=== PATIENT | female | born 1985 | race Caucasian/White ===

== ENCOUNTER 2019-03-21 20:43 | Day surgery (SDC) | payer OTHER ==
[2019-03-21 20:48] VITALS: BMI 27.3
--- NOTE | 2019-03-21 20:48 | PDOC ---
Rapid Medical Evaluation Time Seen by Provider: 03/21/19 20:47 Medical Evaluation: 03/21/19 20:47 CC: lower abdominal pain s/p miscarriage PE: deferred Orders: labs, urine, sono Patient will proceed to ED for further evaluation. Discharge Disposition - Diagnosis Lower abdominal pain - Referrals - Patient Instructions - Post Discharge Activity
--- NOTE | 2019-03-21 21:21 | PDOC ---
History of Present Illness - General Chief Complaint: Pain Stated Complaint: LOWER ABD PAIN Time Seen by Provider: 03/21/19 20:47 - History of Present Illness Initial Comments: 03/21/19 21:41 HPI: 33 y/o F recently delivered 6months ago presenting with acute onset lower abdominal pain that started 2 hrs ago. She states she was cleaning at home when she felt the pain come on. Pain is focally in suprapubic region with some radiation to RLQ. Pain feels like cramps and sharp in nature. Pain is 6/10. She took ibuprofen 400mg at 7pm but pain did not fully resolve. Pain is worse with motion. She has had similar pain 2 weeks ago during her period but pain was transient and only lasted 10 seconds; today it is constant. She denies fever, chills, chest pain, SOB, n/v, syncope, vaginal discharge, dysuria. Recent LMP ended 03/13/18. Using condoms for control PMHx: as noted above ROS: as noted SHx: Denies tobacco use; no alcohol use; no rec drugs Allergies: NKDA ROS: GENERAL/CONSTITUTIONAL: No fever or chills. No weakness. HEAD, EYES, EARS, NOSE AND THROAT: No change in vision. No ear pain or discharge. No sore throat. CARDIOVASCULAR: No chest pain or shortness of breath RESPIRATORY: No cough, wheezing, or hemoptysis. GASTROINTESTINAL: No nausea, vomiting, diarrhea or constipation. GENITOURINARY: No dysuria, frequency, or change in urination. MUSCULOSKELETAL: No joint or muscle swelling or pain. No neck or back pain. SKIN: No rash NEUROLOGIC: No headache, vertigo, loss of consciousness, or change in strength/ sensation. ENDOCRINE: No increased thirst. No abnormal weight change HEMATOLOGIC/LYMPHATIC: No anemia, easy bleeding, or history of blood clots. ALLERGIC/IMMUNOLOGIC: No hives or skin allergy. PE: GENERAL: Awake, alert, and fully oriented, no acute distress HEAD: No signs of trauma, normocephalic, atraumatic EYES: EOMI, sclera anicteric, conjunctiva clear ENT: Auricles normal inspection, hearing grossly normal, nares patent, oropharynx clear without exudates. Moist mucosa NECK: Normal ROM, no lymphadenopathy LUNGS: No increased work of breathing, symmetrical chest rise, clear to auscultation bilaterally, no wheezes, crackles or rhonchi HEART: Regular rate, regular rhythm, normal S1 and S2, no murmur, peripheral pulses 2+ and equal bilaterally. ABDOMEN: Soft, nondistended, suprapubic and right pelvic ttp with minimal guarding, normoactive bowel sounds. No masses. No CVAT MUSCULOSKELETAL: Normal inspection, FROM NEUROLOGICAL: Cranial nerves II through XII grossly intact. Normal speech, normal gait, no focal sensorimotor deficits SKIN: Warm, Dry, normal turgor, no rashes or lesions noted Past History - Past Medical History Allergies/Adverse Reactions: Allergies Allergy/AdvReac Type Severity Reaction Status Date / Time No Known Allergies Allergy Verified 03/21/19 20:48 COPD: No - Immunization History Immunization Up to Date: Yes - Psycho Social/Smoking Cessation Hx Smoking History: Never smoked Have you smoked in the past 12 months: No Information on smoking cessation initiated: No Hx Alcohol Use: No Drug/Substance Use Hx: No *Physical Exam - Vital Signs Last Vital Signs Temp Pulse Resp BP Pulse Ox 97.6 F 89 17 139/74 100 03/21/19 20:45 03/21/19 20:45 03/21/19 20:45 03/21/19 20:45 03/21/19 20:45 ED Treatment Course - LABORATORY CBC & Chemistry Diagram: 03/21/19 22:00 03/21/19 22:00 Medical Decision Making - Medical Decision Making 03/21/19 22:13 33 y/o F recently delivered 6months ago presenting with acute onset lower abdominal pain that started 2 hrs ago. VSS, AF. PE with suprapubic and right pelvic ttp. DDx include uti, preg, torsion, mettleschmerz -cbc, cmp, ua, serum beta hcg -tvus 03/21/19 23:10 bhcg 100 consistent with 03/21/19 23:35 TVUS with a 6.4x4.0x3.5cm nonspecific right adnexal solid structure noted that may represent a possible neoplastic lesion or ectopic . At least a moderate amount of nonspecific complex free fluid is seen suggestive of a hemoperitoneum. Patient follows with Dr Juan Garcia at [facility] and had an appt tomorrow; will contact physician/his integration project manager cover to discuss case and further recs 03/21/19 23:46 Discussed case with integration project manager Ob Dr Sorensen; patient currently with VSS and stable H+H; will plan to DC home with followup in Dr Damian costa at 9am; tylenol for pain control. discussed with patient and she understands all information and return pcxns; she is comfortable with plan; all questions answered 03/22/19 00:02 On further callback from Dr Sorensen, new information yielded that she was evaluated at the center for vaginal bleeding on 03/05/18 and found to have bHCG of 512; she was recommended for US and on 03/13/18 her US results showed an unremarkable US. These new findings are concerning for ruptured ectopic . He stated he does not cover the ER and to contact on-call ObGyn at [facility] On further discussion with Dr Rod, he states that ObGyn from [facility] has full priveleges here and will need to come to assess patient and take to the OR. RN kersey department supervisor notified and anesthesia team to be called Discharge - Discharge Information Problems reviewed: Yes Clinical Impression/Diagnosis: Lower abdominal pain, Vaginal bleeding, Ruptured right tubal ectopic causing hemoperitoneum Condition: Stable - Follow up/Referral Referrals: ON STAFF,NOT [Primary Care Provider] - - Patient Discharge Instructions Patient Printed Discharge Instructions: DI for Abdominal Pain -- Early , DI for Vaginal Bleeding During Additional Instructions: Additional Instructions: Please return to the emergency department with any new or worsening symptoms or concerns including worsening abdominal pain, fainting, significant vaginal bleeding. Please follow up with your shell freezing machine operator Dr Garcia's office tomorrow morning at 9:00am; you may tell the clinic that you were seen at [facility] ER and the physician you saw (Dr Huitron) spoke to the integration project manager shell freezing machine operator, Dr Sorensen , who recommended visiting the office first thing in the morning. - Post Discharge Activity
--- NOTE | 2019-03-21 22:14 | PDOC ---
Documentation entered by Jameel Lomax SCRIBE, acting as scribe for Margot Lagunas DO. Magrot Lagunas DO: This documentation has been prepared by the Dami callahan Daniel, SCRIBE, under my direction and personally reviewed by me in its entirety. I confirm that the documentation accurately reflects all work, treatment, procedures, and medical decision making performed by me. Attending Attestation - Resident Resident Name: Mayra Huitron - ED Attending Attestation I have performed the following: I have examined & evaluated the patient, The case was reviewed & discussed with the resident, I agree w/resident's findings & plan, Exceptions are as noted - HPI HPI: 03/21/19 21:50 The patient is a 33 year old (gave 6 months ago) female with no past medical history here today for evaluation of suprapubic pain. The patient reports that she had a sudden onset of sharp crampy suprapubic pain that radiates to the right lower quadrant and is a 6/10 in severity. She states that similar pains occur during her periods (LMP 2 weeks ago) but states that her current pain has lasted longer (2 hours) than her period pain. Patient denies headache, lightheadedness. Denies fever, chills. Denies chest pain, shortness of breath. Denies nausea, vomiting, diarrhea. Allergies: NKA - Physicial Exam PE: 03/21/19 21:55 Constitutional: Awake, alert, oriented. No acute distress. Head: Normocephalic. Atraumatic Eyes: PERRL. EOMI. Conjunctivae are not pale. ENT: Mucous membranes are moist and intact. Posterior pharynx without exudates or erythema. Uvula midline. Neck: Supple. Full ROM. No lymphadenopathy. Cardiovascular: Regular rate. Regular rhythm. S1, S2 regular. Distal pulses are 2+ and symmetric. Pulmonary/Chest: No evidence of respiratory distress. Clear to auscultation bilaterally No wheezing, rales or rhonchi. Abdominal: +right pelvic tenderness. Soft and non-distended. No rebound, guarding or rigidity. No organomegaly. No palpable masses. Good bowel sounds. Pelvic: +right adnexal tenderness. Back: No CVA tenderness. Musculoskeletal: No edema. No cyanosis. No clubbing. Full range of motion in all extremities. No calf tenderness. Radial/pedal pulses are intact and 2+ bilaterally Skin: Skin is warm and dry. No petechiae. No purpura. Neurological: Alert and oriented to person, place, and time. Cranial nerves II -XII are grossly intact. Normal speech. Strength is grossly symmetric. No sensory deficits. Psychiatric: Good eye contact. Normal interaction, affect and behavior. - Medical Decision Making 03/21/19 22:12 I, Dr. Margot Lagunas, DO, attest that this document has been prepared under my direction and personally reviewed by me in its entirety. I further attest, that it accurately reflects all work, treatment, procedures and medical decision -making performed by me. a/p: 33yo female with R pelvic pain intermittently x 2 weeks -intially started 2 weeks ago, resolved -had pain during her menstrual -has manager gyn appointment for tomorrow -pain acutely worsened tonight- took motrin without relief, but states she started to feel better upon arrival in ER -denies dysuria -denies vaginal symptoms -no n/v/d -will perform pelvic exam -will send labs -tvus -tylenol for pain 03/21/19 22:24 scant amount of vag bleeding on pelvic exam, pt with R adnexal ttp, os closed 03/21/19 22:24 ua shows blood cbc stable 03/21/19 22:52 pt beta 109 slight bleeding pending ultrasound 03/21/19 23:23 r adnexal cyst vs mass + preg ff in abd will discuss with SECURITY ATTENDANT 03/21/19 23:44 resident discussing the case with pts bed worker 03/21/19 23:59 on Mar 05 beta 500, tvus at that time was inconclusive and told to come back for repeat u/s tomorrow pt now with R adnexal mass, beta 100 poss ectopic per her JEWEL CORNER BRUSHING MACHINE OPERATOR - Dr. Sorensen covering Dr. Bailey recommends discussion with our oncall manager gyn service still recommends follow up tomorrow call placed to dr. oropeza 03/22/19 00:06 resident discussed the case with Dr. Oropeza 03/22/19 00:21 resident again discussed the case with Dr. Franchesca Bauman SECURITY ATTENDANT who will come to eval the patient and take the patient to the OR for ruptured ectopic 03/22/19 00:24 pt updated and agrees with the plan
[2019-03-21 22:17] LABS: BASO % 0.6 % (0-2.0); EOS % 1.8 % (0-4.5); HEMATOCRIT 34.5 % (32.4-45.2); HEMOGLOBIN 11.5 GM/dL (10.7-15.3); LYMPH % 25.9 % (8-40); MCH 29.9 pg (25.7-33.7); MCHC 33.3 g/dl (32.0-36.0); MEAN CELL VOLUME 89.9 fl (80-96); MEAN PLT VOLUME 8.6 fl (7.5-11.1); NEUT % 67.7 % (42.8-82.8); PLATELET COUNT 200 K/MM3 (134-434); RBC 3.83 M/mm3 (3.60-5.2); WHITE BLOOD COUNT 6.3 K/mm3 (4.0-10.0)
[2019-03-21 22:22] LABS: EPI CELLS 2.5 /HPF (0-5/HPF); HYALINE CASTS 1 /lpf (0-8); PH,URINE 7.5 (5.0-8.0); URINE APPEARANCE CLEAR; URINE BACTERIA 35.8 /hpf (NEGATIVE); URINE BILIRUBIN NEGATIVE (NEGATIVE); URINE COLOR YELLOW; URINE GLUCOSE (UA) NEGATIVE (NEGATIVE); URINE KETONE NEGATIVE (NEGATIVE); URINE LEUK ESTERASE NEGATIVE (NEGATIVE); URINE NITRITE NEGATIVE (NEGATIVE); URINE PROTEIN TRACE (NEGATIVE); URINE UROBILINOGEN 0.2 mg/dL (0.2-1.0); URINE WBC 6 /hpf (0-5)
[2019-03-21] MEDS ORDERED: ACETAMINOPHEN 500 MG TABLET (FP) PO ONE (22:22)
[2019-03-21 22:50] LABS: BILIRUBIN,TOTAL 0.3 mg/dL (0.2-1); BLOOD UREA NITROGEN 16.2 mg/dL (7-18); CALCIUM 8.8 mg/dL (8.5-10.1); CREATININE 0.6 mg/dL (0.55-1.3); POTASSIUM 4.2 mmol/L (3.5-5.1); TOT PROT 7.5 g/dl (6.4-8.2)
[2019-03-21] MEDS ORDERED: ACETAMINOPHEN 325 MG TABLET (FP) ONE (23:25)
[2019-03-22] MEDS ORDERED: SODIUM CHLORIDE 1,000 ML IV STA (00:20)
--- NOTE | 2019-03-22 01:33 | HP ---
Admitting History and Physical - Admission History Source: Patient Limitations to Obtaining History: No Limitations - Past Medical History ...LMP: 03/08/19 ...LMP Comment: 02/20/2019 ...: Yes (UNKNOWN) ...: 5 ...Para: 3 - Past Surgical History Past Surgical History: Yes: None (This is a 33 Y/O , LMP 02/20/2019, prsent to ED complaning of abdominal pain and vaginal bleeding that startedearlier and was not relifed, Pt. reports that she has been having similar pain on and off for the last few weeks, ( As per [facility] resident)was seen in [facility] on 03/05/2019 had a test that was positive ([facility]), had a pelvic US on 03/13/2019 which was unremarkable. US done in ED showed a 6.4x4x3.5 Rt. adenxal solid strcture, possible ectopic , moderet amount of complex free fluid suggestive of Hemopertoniem. On examnation Patient has mild difuse abdominal tenderness. Patient counseled and informed that the situation with +ve tesyt, blood in the pelvis and an adenxal mass is suggestive of likly and ectopic and would recomend operative intervention Operative Laprascopy/ open. All R/B/A explainend to patient in details, patient expressed and verbalized full understanding, al questions answerd, informed consent signed and wittnessed. Will take patient to the OR for diagnostic/ operative laprascopy, possible lapratomy, salpengictomy, oophorectomy and all nesscery procedures.) - Smoking History Smoking history: Never smoked Have you smoked in the past 12 months: No - Alcohol/Substance Use Hx Alcohol Use: No Home Medications - Allergies Allergies/Adverse Reactions: Allergies Allergy/AdvReac Type Severity Reaction Status Date / Time No Known Allergies Allergy Verified 03/21/19 20:48 Physical Examination Vital Signs: Vital Signs Temperature 98.0 F 03/22/19 00:43 Pulse Rate 86 03/22/19 00:43 Respiratory Rate 18 03/22/19 00:43 Blood Pressure 126/71 03/22/19 00:43 O2 Sat by Pulse Oximetry (%) 99 03/22/19 00:43 Labs: CBC, BMP 03/21/19 22:00 03/21/19 22:00
[2019-03-22] MEDS ORDERED: ONDANSETRON 4 MG/2 ML VIAL IVPUSH PRN (02:35)
[2019-03-22] MEDS ORDERED: PROPOFOL 20 ML ONE ×2 (02:39→02:58)
[2019-03-22] MEDS ORDERED: SUCCINYLCHOLINE CHLORIDE 200 MG/10 ML SYRINGE ONE (02:39)
[2019-03-22] MEDS ORDERED: MIDAZOLAM HCL 2 MG/2 ML SINGLE DOSE VIAL ONE (02:39)
[2019-03-22] MEDS ORDERED: LIDOCAINE HCL 1%, 10 MG/ML (20ML VIAL) ONE (02:43)
[2019-03-22] MEDS ORDERED: LACTATED RINGERS SOLUTION 1,000 ML IV SCH (02:45)
[2019-03-22] MEDS ORDERED: ceFAZolin SODIUM 1 GM VIAL IVPB ONE (03:06)
[2019-03-22] MEDS ORDERED: ceFAZolin SODIUM 1 GM VIAL ONE (03:06)
[2019-03-22] MEDS ORDERED: DEXAMETHASONE SOD PHOSPHATE 4 MG/1 ML VIAL ONE (03:09)
[2019-03-22] MEDS ORDERED: LIDOCAINE HCL 1%, 10 MG/ML (20ML VIAL) NR ONE (03:16)
[2019-03-22] MEDS ORDERED: HYDROmorphone HCl 2 MG/ML VIAL ONE (03:25)
[2019-03-22] MEDS ORDERED: KETOROLAC TROMETHAMINE 30 MG/1 ML VIAL ONE (03:49)
[2019-03-22] MEDS ORDERED: IBUPROFEN 800 MG/8 ML IJ IVPB PRN (04:25)
[2019-03-22] MEDS ORDERED: IBUPROFEN 600 MG TABLET (FP) PO PRN (04:25)
--- NOTE | 2019-03-22 04:41 | OP ---
Operative Note - Note: Operative Date: 03/22/19 Pre-Operative Diagnosis: Right Adenexal Mass. Ruptur right ectopic . Hemopertonium Operation: Diagnostic Laprascopy. Right Salpengectomy. evacuation of hemopertonium Findings: Right Adenexal Mass Ruptur right ectopic Hemopertonium Post-Operative Diagnosis: Same as Pre-op Surgeon: Myrtle Sorensen Anesthesiologist/GIMP BUTTONHOLE MACHINE OPERATOR: Veronika Baires Anesthesia: General Specimens Removed: Right rupute tubal ectopic . Hemopertonium Estimated Blood Loss (mls): 25 Drains & Tubes with Location: 150 CC clear urine Fluid Volume Replaced (mls): 1,000
[2019-03-22 16:49] VITALS: BP 114/67; PULSE 87; TEMP 98.4
--- NOTE | 2019-03-25 15:52 | PATH ---
Surgical Pathology Report Patient Name: DELVIS CHOI Med. Rec. #: [id number] /Age/Gender: 1985 (Age: 33) / F Account: <[id number]> Location: [facility] SUR[facility] Taken: 03/22/2019 Received: 03/22/2019 Reported: 03/25/2019 Physicians: Myrtle Sorensen MD Specimen(s) Received RIGHT FALLOPIAN TUBE Clinical History Hemoperitoneum due to rupture of right tubal ectopic Final Diagnosis FALLOPIAN TUBE, RIGHT, LAPAROSCOPIC SALPINGECTOMY: CHORIONIC VILLI IN A BACKGROUND OF HEMORRHAGE PRESENT WITHIN THE FALLOPIAN TUBE, CONSISTENT WITH ECTOPIC . Electronically Signed Yahaira Mcelroy M.D. Gross Description Received in formalin labeled "right fallopian tube," is a 6 cm in length dilated portion of fallopian tube. The outer surface is osborne purple and smooth. Sectioning reveals a dilated lumen containing blood clot. No definitive villous tissue or somatic tissue is identified. Environment Artist sections are submitted in 3 cassettes. /03/22/2019 saudi/03/22/2019
--- NOTE | 2019-03-28 15:44 | OP ---
DATE OF OPERATION: 03/22/2019 PREOPERATIVE DIAGNOSES: Acute abdominal pain. Vaginal bleeding. Ruptured right ectopic. POSTOPERATIVE DIAGNOSES: Acute abdominal pain. Vaginal bleeding. Ruptured right ectopic. Extensive hemoperitoneum. After consulting the patient and counseling the patient, all risks, benefits, and alternatives were explained to the patient. OPERATIVE PROCEDURE: Operative laparoscopy. Right salpingectomy. Evacuation of hemoperitoneum. After obtaining informed consent, where all risks, benefits and alternatives were discussed and explained to the patient in detail, where patient expressed and verbalized full understanding, all questions asked, consent was signed and witnessed. DESCRIPTION OF OPERATIVE PROCEDURE: Patient was taken to the operating room, was placed in the dorsal position. When anesthesia was found to be adequate, patient was put in lithotomy position. Venodyne boots were placed on the lower extremities. A Wilde catheter as placed. Patient was prepped and draped in the usual sterile fashion. A small subumbilical incision was done for a 5-mm trocar with 5-mm trocar inserted under direct vision with visualization of a large amount of blood in the peritoneum. A second trocar was placed on the right-hand side, a 5-mm trocar, in the anatomic site under direct vision also. A third port, a 10-12 port, was placed on the left side. Operative finding of extensive hemoperitoneum. The HUMI also was placed for mobilizing the uterus. On mobilizing the uterus, a right ruptured tubal ectopic was noted with extensive hemoperitoneum. Suction of hemoperitoneum was done. The ruptured ectopic tube was grasped with a non-traumatic grasper. Using the LigaSure, salpingectomy was done. Using the Endobag, the specimen was placed in and pulled out from the large trocar. Excellent hemostasis noted. Suction and evacuation of hemoperitoneum was done. Around 500 mL of blood in the pelvis was absorbed as much as we could. Looking at the left tube appeared to be within normal limits. Both ovaries appeared within normal limits. Uterus appeared within normal limits. Again, excellent hemostasis was viewed. The large 10-12 trocar was withdrawn under direct vision. Using the guided _Thomas maddieer____ device was used to close the fascia under direct vision. Two sutures were used to close the fascia. The Jose C-Didi device was withdrawn. The pneumoperitoneum was evacuated. The right 5-mm trocar withdrawn under direct vision and the camera and the 5-mm trocar in the umbilicus withdrawn under direct vision. The three wounds were closed with Dermabond. Patient tolerated the procedure very well. Transferred to recovery room in stable condition. Estimated blood loss was minimal. IV fluids given 1 L of LR. Urine output 1500 mL clear urine. Patient also was given 1 g of Ancef. All lap and instrument counts were correct x2. Patient transferred to recovery room in stable condition. MD ELIANE CUMMINGS/[id number] MTDD
== END 2019-03-22 15:50 | disposition home or self-care (01) ==
LOC: JER 20:43 → UNDOADMIN 03-22 00:21 → JERBED 03-22 00:21 → JASUSAT 03-22 04:15 → UNDOADMIN 03-22 04:59 → JERBED 03-22 04:59 → JASU-SURG 03-22 05:59 → J3W 03-22 05:59 → JERBED 03-22 06:00 → J3W 03-22 06:00 → JASU-SURG 03-22 06:00 → J3W 03-22 07:01 → JASUSAT 03-22 07:01 → JASU-SURG 03-22 12:55 → J3W 03-22 12:55 → JASUSAT 03-22 15:50
PROVIDERS: ATTEND Family Medicine
PROC: 10T24ZZ Resection of Products of Conception, Ectopic, Percutaneous Endoscopic Approach (ICD-10-PCS; principal; 2019-03-22 01:45)
PROC: 0UT54ZZ Resection of Right Fallopian Tube, Percutaneous Endoscopic Approach (ICD-10-PCS; 2019-03-22 01:45)
DX: O00.101 Right tubal pregnancy without intrauterine pregnancy (principal); K66.1 Hemoperitoneum
CPT/HCPCS: 36415; 76830-TC; 80053; 81003; 84702; 85025; 86850; 86870; 86900; 86901; 86902; 87086; 94760; 99285-25; J7030